=== PATIENT | female | born 1995 | race Hispanic/Latino ===

== ENCOUNTER 2018-05-05 11:12 | Emergency (ER) | payer OTHER | END 2018-05-05 11:35 | disposition home or self-care (01) | LOC: SCSER 11:12 | DX: J02.9 Acute pharyngitis, unspecified (principal) | CPT/HCPCS: 87081; 87430; 99283 ==

== ENCOUNTER 2018-07-29 06:35 | Emergency (ER) | payer SELFPAY ==
[2018-07-29 06:53] LABS: Bilirubin Small (Negative); Blood, Urine Large (Negative); Clarity Cloudy (Clear); Glucose, Urine (Dipstick) Negative (Negative); Leukocyte Moderate (Negative); Nitrite Negative (Negative); Protein, Urine (Dipstick) 100 mg/dL (Neg-Trace); pH, Urine 5.5 (5.0-9.0)
[2018-07-29 06:58] LABS: Pregnancy Test - Urine (BHCG) Negative (Negative); Pregu Control Background? CLEAR/WHITE (CLR/WHITE); Pregu Control Bar Appear? YES (CONTROL BAR); Specific Gravity 1.025 (1.002-1.036)
[2018-07-29 07:00] LABS: Bacteria/HPF 3+ HPF (None Seen); Hyaline Casts/LPF NONE SEEN LPF (0-3 Hyaline); RBC/HPF 21-50 HPF (0-3); Renal Epithelial 0-3 HPF (0-3); Specific Gravity, Urine 1.025 (1.002-1.036); Squamous Epithelial 0-3 HPF (0-3); Yeast-All Forms 1+ HPF (None Seen)
== END 2018-07-29 07:24 | disposition home or self-care (01) ==
LOC: SCSER 06:35
DX: N39.0 Urinary tract infection, site not specified (principal)
CPT/HCPCS: 81003; 81015; 81025; 87086; 99283

== ENCOUNTER 2020-01-22 22:31 | Emergency (ER) | payer MEDICAID ==
[2020-01-22] MEDS ORDERED: Ketorolac Tromethamine 30 MG/ML VIAL ONE (23:35)
== END 2020-01-22 23:48 | disposition home or self-care (01) ==
LOC: ERS 22:31
DX: S01.81XA Laceration without foreign body of other part of head, initial encounter (principal); Y04.8XXA Assault by other bodily force, initial encounter
CPT/HCPCS: 96372; 99283; J1885

== ENCOUNTER 2021-03-08 08:34 | Outpatient (CLI) | payer MEDICAID | END 2021-03-08 08:35 | disposition home or self-care (01) | LOC: BICULT 08:34 | PROVIDERS: ATTEND Family Medicine | DX: O09.892 Supervision of other high risk pregnancies, second trimester (principal); Z3A.20 20 weeks gestation of pregnancy; U07.1 COVID-19 | CPT/HCPCS: 76805; U0003; U0005 ==